=== PATIENT | female | born 1950 ===

== ENCOUNTER 2017-02-20 17:12 | Emergency (ER) | payer MEDICARE, OTHER ==
[2017-02-20 17:12] VITALS: BMI 21.9
[2017-02-20 17:20] VITALS: BP 143/76; PULSE 64; RESP 17; TEMP 97.9; O2SAT 96
--- NOTE | 2017-02-20 17:31 | ED PDOC ---
Arrival/HPI - General Chief Complaint: Abnormal Skin Integrity Time Seen by Provider: 02/20/17 17:28 Historian: Patient - History of Present Illness Narrative History of Present Illness (Text): The patient is a 66yo female, presents to the emergency department for evaluation of a draining abscess on her right nostril, present for the past two weeks. Patient states she applied vicks to the area, with further irritation of her abscess. She states the abscess started draining yesterday, causing her concern and prompting the visit. She denies any other medical complaints. Time/Duration: > week (2) Symptom Onset: Gradual Past Medical History - Provider Review Nursing Documentation Reviewed: Yes - Travel History Have you recently traveled outside [place] w/in the past 3 mons?: No - Past History Past History: No Previous - Infectious Disease Hx of Infectious Diseases: None - Tetanus Immunization Tetanus Immunization: Unknown - Cardiac Hx Cardiac Disorders: Yes Hx Hypertension: Yes Other/Comment: heart Palpitations comes and goes - Pulmonary Hx Respiratory Disorders: No - Neurological Hx Neurological Disorder: No - HEENT Hx HEENT Disorder: Yes Hx Cataracts: Yes (bilateral) Other/Comment: bleeding behind both eyes, cataracts bilateral - Renal Hx Renal Disorder: No - Endocrine/Metabolic Hx Endocrine Disorders: Yes Hx Diabetes Mellitus Type 2: Yes - Hematological/Oncological Hx Blood Disorders: No - Integumentary Hx Eczema: No - Musculoskeletal/Rheumatological Hx Musculoskeletal Disorders: Yes Hx Arthritis: Yes Hx Osteoporosis: Yes - Gastrointestinal Hx Fatty Liver Disease: No - Psychiatric Hx Schizophrenia: No Hx Substance Use: No - Past Surgical History Past Surgical History: No Previous - Surgical History Hx Cataract Extraction: Yes (RIGHT EYE) Hx Tubal Ligation: Yes (1979) - Anesthesia Hx Anesthesia: Yes Hx Anesthesia Reactions: No - Suicidal Assessment Feels Threatened In Home Enviroment: No Family/Social History - Physician Review Nursing Documentation Reviewed: Yes Family/Social History: No Known Family HX Smoking Status: Former Smoker Hx Alcohol Use: No Hx Substance Use: No Hx Substance Use Treatment: No Allergies/Home Meds Allergies/Adverse Reactions: Allergies iodine Allergy (Verified 02/20/17 17:14) RASH Home Medications: Home Meds Medication Instructions Recorded Confirmed Ergocalciferol (Vitamin D2) 50,000 iu PO DAILY 04/19/14 02/20/17 [Vitamin D] GlipiZIDE [Glipizide] 10 mg PO DAILY 04/19/14 02/20/17 MetFORMIN [glucoPHAGE] 1,000 mg PO BID 04/19/14 02/20/17 Simvastatin 80 mg PO DAILY 04/19/14 02/20/17 Insulin Human Regular [Novolin R] 22 units SC HS 02/20/17 02/20/17 Review of Systems - Physician Review All systems were reviewed & negative as marked: Yes Physical Exam - Physical Exam Narrative Physical Exam (Text): - Review of Systems Constitutional: Normal. absent: Fatigue, Weight Change, Fevers Eyes: Normal ENT: draining abscess on right nostril Physical exam Patient appears age appropriate in no distress, speaking full sentences without difficulty - Systems Exam Head: Present: Atraumatic, Normocephalic Conjunctiva: Present: Normal Nose: Small, 1 cm draining abscess noted to right nare. Mild erythema. No signs of cellulitis noted. Mouth: Present: Moist Mucous Membranes Neurological: No focal neurological deficits. Skin: Present: Warm, Dry, Normal Color. No: Rashes Psychiatric: Present: Alert, Oriented x 3, Normal Insight, Normal Concentration Vital Signs Reviewed: Yes Vital Signs Temp Pulse Resp BP Pulse Ox 02/20/17 17:19 97.9 F 64 17 143/76 96 Temperature: Afebrile Blood Pressure: Normal Pulse: Regular Respiratory Rate: Normal Appearance: Positive for: Well-Appearing Pain Distress: None Mental Status: Positive for: Alert and Oriented X 3 Medical Decision Making ED Course and Treatment: Impression: 66y/o female presents with abscess on right nare. Pt non-toxic in no distress. Plan: -- I&D versus management of abscess using antibiotics and warm compresses discussed with patient. Patient agrees with plan to apply warm compresses to nose and take antibiotics. Patient also informed to follow up with an ENT specialist. Pt states she understands to return to the ER right away for new or worsening symptoms or for inability to f/u with PMD or specialist as instructed. Patient states that she fully agrees with and understands discharge instructions. States that she agrees with the plan and disposition. Verbalized and repeated discharge instructions and plan. I have given the patient opportunity to ask any additional questions. - Scribe Statement The provider has reviewed the documentation as recorded by the Jonelle Soriano Provider Scribe Attestation: All medical record entries made by the Scribe were at my direction and personally dictated by me. I have reviewed the chart and agree that the record accurately reflects my personal performance of the history, physical exam, medical decision making, and the department course for this patient. I have also personally directed, reviewed, and agree with the discharge instructions and disposition. Disposition/Present on Arrival - Present on Arrival Any Indicators Present on Arrival: No History of DVT/PE: No History of Uncontrolled Diabetes: Yes Urinary Catheter: No History of Decub. Ulcer: No History Surgical Site Infection Following: None - Disposition Have Diagnosis and Disposition been Completed?: Yes Diagnosis: Nasal abscess Disposition: HOME/ ROUTINE Disposition Time: 17:28 Patient Plan: Discharge Condition: GOOD Discharge Instructions (ExitCare): Abscess (ED) Additional Instructions: PLEASE RETURN TO THE EMERGENCY DEPARTMENT FOR NEW OR WORSENING SYMPTOMS. RETURN RIGHT AWAY IF YOU CANNOT FOLLOW UP WITH YOUR PRIMARY CARE DOCTOR, CLINIC, OR SPECIALIST IN 1-2 DAYS. Prescriptions: Cephalexin [Keflex] 500 mg PO TID #21 capsule Referrals: Remy Aguilar DO [Staff Provider] - Follow up with primary Forms: [employer] (Y[place]i)
== END 2017-02-20 17:51 | disposition home or self-care (01) ==
LOC: ED 17:12
DX: J34.0 Abscess, furuncle and carbuncle of nose (principal); Z87.891 Personal history of nicotine dependence

== ENCOUNTER 2018-07-15 13:35 | Inpatient (IN) | payer OTHER ==
[2018-07-15 13:56] VITALS: BMI 23.2
[2018-07-15 14:25] LABS: VENOUS BLOOD GAS BASE EXCESS 2.5 mmol/L (0.0-2.0); VENOUS BLOOD GAS PO2 40 mm/Hg (30-55)
[2018-07-15 14:35] LABS: BASO # 0.01 K/mm3 (0.0-2.0); BASO % 0.1 % (0.0-3.0); EOS % 0.1 % (1.5-5.0); HEMOGLOBIN 11.7 g/dL (12.0-16.0); LYMPH # 0.5 (1.2-3.4); LYMPH % 3.8 % (22.0-35.0); MEAN CELL VOLUME 91.8 fl (80.0-105.0); MEAN CORPUSCULAR HEMOGLOBIN 30.2 pg (25.0-35.0); MEAN CORPUSCULAR HGB CONC 32.9 g/dl (31.0-37.0); MEAN PLATELET VOLUME 9.9 fl (7.0-11.0); MONO # 0.7 (0.1-0.6); PLATELET COUNT 254 10^3/uL (120.0-450.0); RBC 3.88 10^6/uL (3.5-6.1); RED CELL DISTRIBUTION WIDTH 12.7 % (11.5-14.5); WHITE BLOOD COUNT 12.2 10^3/uL (4.5-11.0)
[2018-07-15 14:51] LABS: INR 1.18; PARTIAL THROMBOPLASTIN TIME 29.6 Seconds (26.9-38.3); PROTHROMBIN TIME 13.1 SECONDS (9.4-12.5)
[2018-07-15 14:52] LABS: ALB/GLOB RATIO 1.2 (1.1-1.8); ALBUMIN 3.9 g/dL (3.0-4.8); ALT/SGPT 16 U/L (7-56); AST/SGOT 23 U/L (14-36); BLOOD UREA NITROGEN 24 mg/dL (7-21); CALCIUM 9.3 mg/dL (8.4-10.5); GFR NON-AFRICAN AMERICAN > 60
[2018-07-15] MEDS ORDERED: Sodium Chloride 0.9% 1,000 ML IV STA (14:57)
[2018-07-15 15:09] LABS: HYPOCHROMIA SLIGHT; LYMPHOCYTE 5 % (22.0-35.0); MONOCYTE 4 % (1.0-6.0); NEUTROPHIL 91 % (50.0-70.0); PLATELET ESTIMATE NORMAL (NORMAL)
[2018-07-15 15:10] LABS: ANISOCYTOSIS SLIGHT
--- NOTE | 2018-07-15 15:21 | ED PDOC ---
Arrival/HPI - General Chief Complaint: Back Pain Time Seen by Provider: 07/15/18 14:25 Historian: Patient, Family (daughter and granddaughter) - History of Present Illness Narrative History of Present Illness (Text): 07/15/18 15:54 A 68 year old female, whose past medical history includes diabetes, presents to the emergency department complaining of right lower back pain for the past 2 days. History given and translated by daughter and granddaughter. Patient went see her diabetes doctor at [facility] and was given refill on diabetes medication. Patient states the doctor did not give her anything for her back pain. Pain began to radiate down patient's right leg as well. Patient reports also experiencing intermittent chest pain, fever, palpitations, chills, nausea. Patient denies any cough, sob, bowel or bladder incontinence, vomiting, diarrhea, dysuria, hematuria, abdominal pain, or any other complaints at this time. Past Medical History - Provider Review Nursing Documentation Reviewed: Yes - Past History Past History: No Previous - Infectious Disease Hx of Infectious Diseases: None - Tetanus Immunization Tetanus Immunization: Unknown - Cardiac Hx Cardiac Disorders: Yes Hx Hypertension: Yes Other/Comment: heart Palpitations comes and goes - Pulmonary Hx Respiratory Disorders: No - Neurological Hx Neurological Disorder: No - HEENT Hx HEENT Disorder: Yes Hx Cataracts: Yes (bilateral) Other/Comment: bleeding behind both eyes, cataracts bilateral - Renal Hx Renal Disorder: No - Endocrine/Metabolic Hx Endocrine Disorders: Yes Hx Diabetes Mellitus Type 2: Yes - Hematological/Oncological Hx Blood Disorders: No - Integumentary Hx Eczema: No - Musculoskeletal/Rheumatological Hx Musculoskeletal Disorders: Yes Hx Arthritis: Yes Hx Osteoporosis: Yes - Gastrointestinal Hx Fatty Liver Disease: No - Psychiatric Hx Schizophrenia: No Hx Substance Use: No - Past Surgical History Past Surgical History: No Previous - Surgical History Hx Cataract Extraction: Yes (RIGHT EYE) Hx Tubal Ligation: Yes (1979) - Anesthesia Hx Anesthesia: Yes Hx Anesthesia Reactions: No Hx Malignant Hyperthermia: No - Suicidal Assessment Feels Threatened In Home Enviroment: No Family/Social History - Physician Review Nursing Documentation Reviewed: Yes Family/Social History: No Known Family HX Smoking Status: Former Smoker Hx Alcohol Use: No Hx Substance Use: No Hx Substance Use Treatment: No Allergies/Home Meds Allergies/Adverse Reactions: Allergies iodine Allergy (Verified 07/15/18 20:23) RASH Home Medications: Home Meds Medication Instructions Recorded Confirmed Ergocalciferol (Vitamin D2) 50,000 iu PO DAILY 04/19/14 07/15/18 [Vitamin D] GlipiZIDE [Glipizide] 10 mg PO DAILY 04/19/14 07/15/18 RX: MetFORMIN [glucoPHAGE] 1,000 mg PO BID 04/19/14 07/15/18 RX: Insulin Human Regular [Novolin 22 units SC HS 02/20/17 07/15/18 R] Simvastatin [Zocor] 80 mg PO DAILY 07/15/18 07/15/18 Review of Systems - Physician Review All systems were reviewed & negative as marked: Yes - Review of Systems Constitutional: Fevers, Night Sweats Cardiovascular: Chest Pain, Palpitations Gastrointestinal: Nausea. absent: Abdominal Pain, Vomiting Genitourinary Female: absent: Dysuria, Hematuria Physical Exam Vital Signs Reviewed: Yes Vital Signs Temp Pulse Resp BP Pulse Ox 07/15/18 13:48 102.5 F H 93 H 16 120/63 98 Temperature: Febrile Blood Pressure: Normal Pulse: Regular Respiratory Rate: Normal Appearance: Positive for: Well-Appearing, Non-Toxic, Comfortable Pain Distress: None Mental Status: Positive for: Alert and Oriented X 3 Finger Stick Blood Glucose: 286 - Systems Exam Head: Present: Atraumatic, Normocephalic Pupils: Present: PERRL Extroacular Muscles: Present: EOMI Conjunctiva: Present: Normal Mouth: Present: Moist Mucous Membranes Neck: Present: Normal Range of Motion Respiratory/Chest: Present: Clear to Auscultation, Good Air Exchange. No: Respiratory Distress, Accessory Muscle Use Cardiovascular: Present: Regular Rate and Rhythm, Normal S1, S2. No: Murmurs Abdomen: Present: Tenderness (suprapubic region). No: Distention, Normal Bowel Sounds (increased bowel sounds), Peritoneal Signs, Rebound Back: Present: Other (right lower muscular tenderness). No: CVA Tenderness Upper Extremity: Present: Normal Inspection. No: Cyanosis, Edema Lower Extremity: Present: Normal Inspection. No: Edema Neurological: Present: GCS=15, CN II-XII Intact, Speech Normal, Motor Func Grossly Intact, Normal Sensory Function Skin: Present: Warm, Dry, Normal Color. No: Rashes Psychiatric: Present: Alert, Oriented x 3, Normal Insight, Normal Concentration Medical Decision Making ED Course and Treatment: 07/15/18 15:57 Impression: 68 year old female with lower back pain. Plan: -- EKG -- Abd/Pelvis CT -- Tylenol -- IV Fluids -- Urinalysis -- Blood Culture -- Urine Culture -- Reassess and disposition Progress Notes: EKG: Ordered, reviewed, and independently interpreted the EKG. Rate : 94 BPM Rhythm : NSR Interpretation : Prolonged interior lead, normal QT, T-wave inversions laterally, v3-v6, AVL inverted. Comparison : EKG taken on 04/19/2014, T-wave inversions are new. 07/15/2018 17:46 Abd/Pelvis CT IMPRESSION: The appendix is slightly dilated measuring up to 10.6 mm with minimal wall thickening however does appear to be partially filled with air. No obvious inflammatory changes are identified in the adjacent mesentery. These findings may represent an normal variant in this patient however the possiblity of early acute appedicifits must be considered. Correlation with history physical exam and laboratory values recommended. 4 mm nonobstructing calcification upper pole left kidney. Urinary bladder wall thickening in part due ti incomplete distention however correlation with Urinalysis to exclude cystitis. Mild rectal wall thickening. Consider follow-up of colonoscopy. Extensive uterine calcifications consistent with calcified uterine fibroids. Dictator: Ramses Fournier MD 07/15/18 18:00 Patient c/o chest pain. Aspirin and SL NTG given. Troponin neg. Patient and daughter updated re results of w/u and plan to admit for further evaluation and management. 07/15/18 18:15 Patient is chest pain free. 07/15/18 18:30 Patient seen by surgical technology instructor, who requests abx and states he will notify Dr. Dexter. 07/15/18 18:40 Case d/w Dr. Ca who accepts pt to her service. - Lab Interpretations Lab Results: pO2 40 mm/Hg (30-55) 07/15/18 14:10 VBG pH 7.40 (7.32-7.43) 07/15/18 14:10 VBG pCO2 45.0 (40-60) 07/15/18 14:10 VBG HCO3 27.9 mmol/l (21-28) 07/15/18 14:10 VBG Total CO2 29.3 mmol.L (22-28) H 07/15/18 14:10 VBG O2 Sat (Calc) 79.7 % (40-65) H 07/15/18 14:10 VBG Base Excess 2.5 mmol/L (0.0-2.0) H 07/15/18 14:10 VBG Potassium 4.9 mmol/L (3.6-5.2) 07/15/18 14:10 Sodium 137.0 mmol/L (132-148) 07/15/18 14:10 Chloride 106.0 mmol/L (98-107) 07/15/18 14:10 Glucose 305 mg/dl (65-105) H 07/15/18 14:10 Lactate 1.6 mmol/L (0.7-2.1) 07/15/18 14:10 FiO2 21.0 % 07/15/18 14:10 PT 13.1 SECONDS (9.4-12.5) H 07/15/18 14:29 INR 1.18 07/15/18 14:29 APTT 29.6 Seconds (26.9-38.3) 07/15/18 14:29 Total Bilirubin 0.6 mg/dL (0.2-1.3) 07/15/18 14:29 AST 23 U/L (14-36) 07/15/18 14:29 ALT 16 U/L (7-56) 07/15/18 14:29 Alkaline Phosphatase 85 U/L (38-126) 07/15/18 14:29 Total Protein 7.1 g/dL (5.8-8.3) 07/15/18 14:29 Albumin 3.9 g/dL (3.0-4.8) 07/15/18 14:29 Globulin 3.2 gm/dL 07/15/18 14:29 Albumin/Globulin Ratio 1.2 (1.1-1.8) 07/15/18 14:29 - RAD Interpretation Radiology Orders: 07/15/18 14:59 ABD & PELVIS W/O PO OR IV CONT [CT] Stat - Medication Orders Current Medication Orders: Sodium Chloride (Sodium Chloride 0.9%) 1,000 mls @ 999 mls/hr IV .Q1H1M STA Stop: 07/15/18 15:57 Last Admin: 07/15/18 15:06 Dose: 999 mls/hr eMAR Start Stop Document 07/15/18 15:06 SRE (Rec: 07/15/18 15:07 SRE [id number]) Intravenous Solution Start Date 07/15/18 Start Time 15:00 End Date 07/15/18 End time 16:00 Total Infusion Time 60 Discontinued Medications Acetaminophen (Tylenol 325mg Tab) 975 mg PO STAT STA Stop: 07/15/18 14:58 Last Admin: 07/15/18 15:08 Dose: 975 mg MAR Pain/Vitals Document 07/15/18 15:08 SRE (Rec: 07/15/18 15:08 SRE [id number]) Pain Reassessment Is This A Pain ReAssessment? Yes - Scribe Statement The provider has reviewed the documentation as recorded by the Jonelle Serrato Provider Scribe Attestation: All medical record entries made by the Scribe were at my direction and personally dictated by me. I have reviewed the chart and agree that the record accurately reflects my personal performance of the history, physical exam, medical decision making, and the department course for this patient. I have also personally directed, reviewed, and agree with the discharge instructions and disposition. Disposition/Present on Arrival - Present on Arrival Any Indicators Present on Arrival: Yes History of DVT/PE: No History of Uncontrolled Diabetes: Yes Urinary Catheter: No History of Decub. Ulcer: No History Surgical Site Infection Following: None - Disposition Have Diagnosis and Disposition been Completed?: Yes Diagnosis: Chest pain, Abnormal EKG, Appendicitis, Back pain, Hyperglycemia Disposition: HOSPITALIZED Disposition Time: 16:40 Patient Plan: Admission Condition: STABLE
[2018-07-15 16:45] LABS: URINE BILIRUBIN NEGATIVE (NEGATIVE); URINE BLOOD NEGATIVE (NEGATIVE); URINE GLUCOSE (UA) 500 mg/dL (NEGATIVE); URINE LEUKOCYTE ESTERASE NEGATIVE Leu/uL (NEGATIVE); URINE PROTEIN 30 mg/dL (<30 mg/dL); URINE UROBILINOGEN 0.2 E.U./dL (<1 E.U./dL)
[2018-07-15 16:46] LABS: URINE APPEARANCE CLEAR (CLEAR); URINE COLOR YELLOW (YELLOW)
[2018-07-15 16:50] LABS: URINE EPITHELIAL CELLS 0 - 2 /hpf (0-5); URINE RBC 0 - 2 /hpf (0-2); URINE WBC 0 - 2 /hpf (0-6)
--- NOTE | 2018-07-15 17:50 | CT ---
Date of service: 07/15/2018 PROCEDURE: CT Abdomen and Pelvis . HISTORY: Right flank pain COMPARISON: None. TECHNIQUE: Contiguous axial images of the abdomen and pelvis performed without oral or intravenous contrast material. Additional 2D sagittal and coronal reformats generated. Radiation dose: Total exam DLP = 239.13 mGy-cm. This CT exam was performed using one or more of the following dose reduction techniques: Automated exposure control, adjustment of the mA and/or kV according to patient size, and/or use of iterative reconstruction technique. FINDINGS: LOWER THORAX: Mild passive/dependent type atelectasis seen both posterior lower lung grajeda.. No evidence of effusion or basilar pneumothorax. Heart size is within range of normal. No significant pericardial effusion. There is a small hiatal hernia. LIVER: Unremarkable. No gross lesion or ductal dilatation seen on this noncontrast exam. GALLBLADDER AND BILE DUCTS: Gallbladder physiologically distended. No evidence of intraluminal gallbladder calculi. PANCREAS: Unremarkable. No mass. No ductal dilatation. SPLEEN: Probable small splenule adjacent to the inferomedial border of the main body of the spleen. ADRENALS: Slightly enlarged nodular appearing left adrenal gland. KIDNEYS AND URETERS: Unremarkable. No stone or hydronephrosis. Kidneys demonstrate relatively symmetric size. There is a small calcification in the medial cortex upper pole left kidney measuring approximately 4 mm. No evidence of hydronephrosis. BLADDER: The urinary bladder is incompletely distended which in part accounts for thick-walled appearance however correlation with urinalysis recommended to exclude cystitis. REPRODUCTIVE: Multiple uterine calcifications consistent calcified uterine fibroids. APPENDIX: The appendix is slightly dilated measuring up to 10.6 mm with minimal wall thickening however does appear to be partially filled with air. No obvious inflammatory changes are identified in the adjacent mesentery. These findings may represent an normal variant in this patient however the possibility of early acute appendicitis must be considered. Correlation with history physical exam and laboratory values recommended. BOWEL: Evaluation of the bowel is somewhat limited due to the lack of oral contrast material. Stomach is incompletely distended with wall thickening. Wall thickening is somewhat more pronounced than one would expect therefore possibility of a gastritis or other intrinsic/invasive wall lesion should be excluded. Clinical correlation recommended. The visualized loops of small bowel exhibit relatively normal contour and caliber. No evidence of mechanical small bowel obstruction. Stool and air seen throughout the large bowel.. Questionable mural wall thickening of the rectum. Follow-up of colonoscopy may be prudent. PERITONEUM: Unremarkable. No fluid collection. No free air. Small fat containing umbilical hernia. LYMPH NODES: Unremarkable. No enlarged lymph nodes. VASCULATURE: Unremarkable. No aortic aneurysm. Minor aortic atherosclerotic calcification or mural plaque present. BONES: Mild multilevel degenerative spondylosis of the thoracic and lumbar spine most mid significantly affecting L3-L4 disc space level. OTHER FINDINGS: None. IMPRESSION: The appendix is slightly dilated measuring up to 10.6 mm with minimal wall thickening however does appear to be partially filled with air. No obvious inflammatory changes are identified in the adjacent mesentery. These findings may represent an normal variant in this patient however the possibility of early acute appendicitis must be considered. Correlation with history physical exam and laboratory values recommended. 4 mm nonobstructing calcification upper pole left kidney. Urinary bladder wall thickening in part due to incomplete distention however correlation with urinalysis to exclude cystitis. Mild rectal wall thickening. Consider follow-up of colonoscopy. Extensive uterine calcifications consistent with calcified uterine fibroids. See above discussion for additional details and findings.
[2018-07-15 18:21] LABS: TROPONIN I < 0.01 ng/mL
[2018-07-15] MEDS ORDERED: Piperacillin/Tazobact 3.375 gm 100 ML IVPB STA (18:37)
--- NOTE | 2018-07-15 18:50 | CP.PCM.CON ---
History of Present Illness - History of Present Illness History of Present Illness: Surgery Consult note. Dr. Dexter 68yo F with PMHx of DM, HLD, Hypothyroid here for evaluation of right flank pain. Patient states that the pain started 3 days ago and has been getting gradually worse, intermittent in nature, radiates down right lower leg. She started having some nausea and decreased appetite and came into the ED for further evaluation. Denies any vomiting. Does report some constipation over the past few days. Last BM was yesterday, non-bloody, non-melanotic. She also reports some chills at home and subjective fevers. Tmax of 102F in the ED. She denies any urinary complaints. Also reports some palpitaions that have been off and on over the past 3 months. Denies any chest pain, no SOB. Denies any sick contacts. CT Abd/Pelvis in the ED with possible early appendicitis. PMHx: DM, HLD, Hypothyroid PSHx: Tubal Ligation Family Hx: non-contributory Social Hx: Denies tobacco use; Denies ETOH; Denies illicit drugs Allergy: Iodine Review of Systems - Review of Systems All systems: reviewed and no additional remarkable complaints except - Constitutional Constitutional: Anorexia, Chills, Fever - Cardiovascular Cardiovascular: Palpitations. absent: Chest Pain, Dyspnea - Respiratory Respiratory: absent: Cough, Dyspnea - Gastrointestinal Gastrointestinal: Abdominal Pain, Constipation, Nausea. absent: Diarrhea, Melena, Vomiting - Genitourinary Genitourinary: absent: Dysuria Past Patient History - Infectious Disease Hx of Infectious Diseases: None - Tetanus Immunizations Tetanus Immunization: Unknown - Past Medical History & Family History Past Medical History?: Yes - Past Social History Smoking Status: Former Smoker Alcohol: None Drugs: Denies - CARDIAC Hx Cardiac Disorders: Yes Hx Hypertension: Yes Other/Comment: heart Palpitations comes and goes - PULMONARY Hx Respiratory Disorders: No - NEUROLOGICAL Hx Neurological Disorder: No - HEENT Hx HEENT Problems: Yes Hx Cataracts: Yes (bilateral) Other/Comment: bleeding behind both eyes, cataracts bilateral - RENAL Hx Chronic Kidney Disease: No - ENDOCRINE/METABOLIC Hx Endocrine Disorders: Yes Hx Diabetes Mellitus Type 2: Yes - HEMATOLOGICAL/ONCOLOGICAL Hx Blood Disorders: No - INTEGUMENTARY Hx Eczema: No - MUSCULOSKELETAL/RHEUMATOLOGICAL Hx Musculoskeletal Disorders: Yes Hx Arthritis: Yes Hx Osteoporosis: Yes - GASTROINTESTINAL Hx Fatty Liver Disease: No - PSYCHIATRIC Hx Schizophrenia: No Hx Substance Use: No - SURGICAL HISTORY Hx Cataract Extraction: Yes (RIGHT EYE) Hx Tubal Ligation: Yes (1979) - ANESTHESIA Hx Anesthesia: Yes Hx Anesthesia Reactions: No Hx Malignant Hyperthermia: No Meds Allergies/Adverse Reactions: Allergies Allergy/AdvReac Type Severity Reaction Status Date / Time iodine Allergy RASH Verified 07/15/18 20:23 - Medications Medications: Current Medications Piperacillin Sod/Tazobactam Sod (Zosyn 3.375 In Ns 100ml) 100 mls @ 200 mls/hr IVPB STAT STA; Protocol Stop: 07/15/18 19:06 Nitroglycerin (Nitrostat Sl Tab) 0.4 mg SL Q5MIN PRN PRN Reason: Pain, Mild (1-3) Last Admin: 07/15/18 18:00 Dose: 0.4 mg Physical Exam - Constitutional Appears: No Acute Distress - Head Exam Head Exam: ATRAUMATIC, NORMAL INSPECTION, NORMOCEPHALIC - Eye Exam Eye Exam: EOMI. absent: Scleral icterus - ENT Exam ENT Exam: Mucous Membranes Moist - Respiratory Exam Respiratory Exam: NORMAL BREATHING PATTERN. absent: Accessory Muscle Use, Respiratory Distress - Cardiovascular Exam Cardiovascular Exam: RRR. absent: JVD - GI/Abdominal Exam GI & Abdominal Exam: Soft. absent: Distended, Firm, Guarding, Rebound Additional comments: Right Lower quadrant tenderness to deep palpation. No Rovsing's sign. No Obturator sign. No Psoas Sign. - Extremities Exam Extremities exam: Positive for: normal inspection. Negative for: calf tenderness - Back Exam Back exam: NORMAL INSPECTION - Neurological Exam Neurological exam: Alert, Oriented x3 - Psychiatric Exam Psychiatric exam: Normal Affect, Normal Mood - Skin Skin Exam: Dry, Intact, Normal Color, Warm Results - Vital Signs Recent Vital Signs: Last Vital Signs Temp 98.9 F 07/15/18 17:37 Pulse 83 07/15/18 18:09 Resp 20 07/15/18 18:09 BP 190/97 H 07/15/18 18:09 Pulse Ox 95 07/15/18 18:09 - Labs Result Diagrams: 07/15/18 14:29 07/15/18 14:29 Labs: Laboratory Results - last 24 hr 07/15/18 07/15/18 07/15/18 13:47 14:10 14:10 WBC RBC Hgb Hct MCV MCH MCHC RDW Plt Count MPV Neut % (Auto) Lymph % (Auto) Knox % (Auto) Eos % (Auto) Baso % (Auto) Lymph # (Auto) Knox # (Auto) Eos # (Auto) Baso # (Auto) Absolute Neuts (auto) Neutrophils % (Manual) Lymphocytes % (Manual) Monocytes % (Manual) Platelet Evaluation Hypochromasia Anisocytosis (manual) PT INR APTT pO2 40 VBG pH 7.40 VBG pCO2 45.0 VBG HCO3 27.9 VBG Total CO2 29.3 H VBG O2 Sat (Calc) 79.7 H VBG Base Excess 2.5 H VBG Potassium 4.9 Sodium 137.0 Chloride 106.0 Glucose 305 H Lactate 1.6 FiO2 21.0 Potassium Carbon Dioxide Anion Gap BUN Creatinine Est GFR ( Amer) Est GFR (Non-Af Amer) POC Glucose (mg/dL) 286 H Random Glucose Calcium Total Bilirubin AST ALT Alkaline Phosphatase Ammonia < 9 L Troponin I Total Protein Albumin Globulin Albumin/Globulin Ratio Venous Blood Potassium 4.9 Urine Color Urine Appearance Urine pH Ur Specific [place] Urine Protein Urine Glucose (UA) Urine Ketones Urine Blood Urine Nitrate Urine Bilirubin Urine Urobilinogen Ur Leukocyte Esterase Urine RBC Urine WBC Ur Epithelial Cells 07/15/18 07/15/18 07/15/18 14:29 14:29 14:29 WBC 12.2 H RBC 3.88 Hgb 11.7 L Hct 35.6 L MCV 91.8 MCH 30.2 MCHC 32.9 RDW 12.7 Plt Count 254 MPV 9.9 Neut % (Auto) 90.0 H Lymph % (Auto) 3.8 L Knox % (Auto) 6.0 Eos % (Auto) 0.1 L Baso % (Auto) 0.1 Lymph # (Auto) 0.5 L Knox # (Auto) 0.7 H Eos # (Auto) 0.0 Baso # (Auto) 0.01 Absolute Neuts (auto) 11.03 H Neutrophils % (Manual) 91 H Lymphocytes % (Manual) 5 L Monocytes % (Manual) 4 Platelet Evaluation Normal Hypochromasia Slight Anisocytosis (manual) Slight PT 13.1 H INR 1.18 APTT 29.6 pO2 VBG pH VBG pCO2 VBG HCO3 VBG Total CO2 VBG O2 Sat (Calc) VBG Base Excess VBG Potassium Sodium 137 Chloride 104 Glucose Lactate FiO2 Potassium 5.0 Carbon Dioxide 26 Anion Gap 12 BUN 24 H Creatinine 0.9 Est GFR ( Amer) > 60 Est GFR (Non-Af Amer) > 60 POC Glucose (mg/dL) Random Glucose 284 H Calcium 9.3 Total Bilirubin 0.6 AST 23 ALT 16 Alkaline Phosphatase 85 Ammonia Troponin I < 0.01 Total Protein 7.1 Albumin 3.9 Globulin 3.2 Albumin/Globulin Ratio 1.2 Venous Blood Potassium Urine Color Urine Appearance Urine pH Ur Specific [place] Urine Protein Urine Glucose (UA) Urine Ketones Urine Blood Urine Nitrate Urine Bilirubin Urine Urobilinogen Ur Leukocyte Esterase Urine RBC Urine WBC Ur Epithelial Cells 07/15/18 16:35 WBC RBC Hgb Hct MCV MCH MCHC RDW Plt Count MPV Neut % (Auto) Lymph % (Auto) Knox % (Auto) Eos % (Auto) Baso % (Auto) Lymph # (Auto) Knox # (Auto) Eos # (Auto) Baso # (Auto) Absolute Neuts (auto) Neutrophils % (Manual) Lymphocytes % (Manual) Monocytes % (Manual) Platelet Evaluation Hypochromasia Anisocytosis (manual) PT INR APTT pO2 VBG pH VBG pCO2 VBG HCO3 VBG Total CO2 VBG O2 Sat (Calc) VBG Base Excess VBG Potassium Sodium Chloride Glucose Lactate FiO2 Potassium Carbon Dioxide Anion Gap BUN Creatinine Est GFR ( Amer) Est GFR (Non-Af Amer) POC Glucose (mg/dL) Random Glucose Calcium Total Bilirubin AST ALT Alkaline Phosphatase Ammonia Troponin I Total Protein Albumin Globulin Albumin/Globulin Ratio Venous Blood Potassium Urine Color Yellow Urine Appearance Clear Urine pH 8.0 Ur Specific [place] 1.020 Urine Protein 30 H Urine Glucose (UA) 500 H Urine Ketones 15 H Urine Blood Negative Urine Nitrate Negative Urine Bilirubin Negative Urine Urobilinogen 0.2 Ur Leukocyte Esterase Negative Urine RBC 0 - 2 Urine WBC 0 - 2 Ur Epithelial Cells 0 - 2 Assessment & Plan - Assessment and Plan (Free Text) Assessment: 68yo F w poorly-controlled DM, HLD, Hypothyroid here with possible early appendicitis - CT Abd/pelvis noted - Leukocytosis - Febrile Plan: - NPO - IV Abx - pain management - antiemetics prn - medical management as per PMD - f/u Cardiology recs - We will monitor patient's clinical status and make further surgical recs as warranted. Further recs as per Dr. Isacc Hawkins PGY2 surgery
[2018-07-15] MEDS ORDERED: HYDROmorphone 1 mg/ml ISec IVP PRN (18:54)
[2018-07-15] MEDS ORDERED: metroNIDAZOLE IV 500 mg/100 ml 500 MG/100 ML BAG IVPB STA (18:58)
[2018-07-15] MEDS ORDERED: cefTRIAXone 1 GM/100 ML BAG IVPB STA (19:02)
[2018-07-15] MEDS: Metoprolol Succinate 25 mg XL Tab PO SCH (19:30)
[2018-07-15] MEDS: Sodium Chloride 0.45% 1,000 ML IV SCH (19:31)
[2018-07-15] MEDS: Heparin25000 units/250ml 1/2NS 25,000 UNITS/250 ML BAG IV SCH (20:59)
[2018-07-15] MEDS: Insulin Reg-HIGH-Coverage SC SCH (21:46)
[2018-07-15] MEDS: metroNIDAZOLE IV 500 mg/100 ml 500 MG/100 ML BAG IVPB SCH (21:47)
--- NOTE | 2018-07-15 21:54 | HP ---
DATE OF EXAM: 07/15/2018 HISTORY OF PRESENT ILLNESS: The patient is 68 years old, came to emergency room because of generalized aches and pain, not feeling well, chest discomfort, abdominal pain, lower back pain. For above reason, the patient was taken by her family to council member, she was given refills, so her pain got worse and started to radiate from the back to the right lower abdomen and the right leg. Complaining of generalized weakness and feeling feverish along with chills. She had nausea and decreased appetite, started to have abdominal discomfort with bloating. The patient is a poor historian. PAST MEDICAL HISTORY: Significant for xim-qxmjflg-dldoqmysh diabetes. PAST SURGICAL HISTORY: Significant for cataract surgery. ALLERGIES: SHE IS ALLERGIC TO IODINE. MEDICATIONS AT HOME: She is on simvastatin 80 mg daily, metformin 1000 mg twice a day, Novolin R 22 unit at bedtime, glipizide 10 mg daily, vitamin D, and Keflex. SOCIAL HISTORY: She used to be a heavy smoker in the past. Denies alcohol use. PHYSICAL EXAMINATION: GENERAL: The patient is awake and alert, able to communicate. VITAL SIGNS: Temperature 102.5, pulse 93, respirations 16, and blood pressure 120/63. LUNGS: Bilateral fair airflow. No rhonchi or crackle. HEART: S1 and S2 audible. ABDOMEN: Soft. Right lower quadrant discomfort. NEUROLOGIC: She is awake, alert, oriented, able to communicate. LABORATORY DATA: WBC 12.2, hemoglobin 11.7, hematocrit 35.6, and platelet 254. PT 13.1, INR 1.18. Chemistry: Sodium 137, potassium 5.0, chloride 104, CO2 of 23, BUN 24, creatinine 0.9, blood sugar 284, alk phos 85. Ammonia level is less than 10. Troponin 0.01. Urinalysis shows glucose and ketones. She had CT scan of the abdomen and pelvis done that shows appendix likely dilated measuring up to 10.6 mm with minimal wall thickening, however, appeared to be partially filled with air finding consistent with normal variant which is early acute appendicitis. Nonobstructive left upper renal stone. ASSESSMENT: 1. Acute appendicitis. 2. Non-insulin dependent diabetes. 3. History of hypertension. 4. Hyperlipidemia. PLAN: We will keep the patient n.p.o. We will give IV fluid and IV antibiotics. Monitor blood sugar. Surgical consult by Dr. Dexter has been requested and we will follow up CBC and electrolyte in a.m. We will follow up in a.m. Luis Angel Canales MD
[2018-07-15] MEDS ORDERED: Pneumococcal 23-Valent Vaccine IM ONE (22:47)
[2018-07-15] MEDS ORDERED: Influenza Vaccine 60 mcg/0.5 mL SYR (4YR UP) IM ONE (22:47)
[2018-07-16 03:24] LABS: BASO # 0.02 K/mm3 (0.0-2.0); BASO % 0.1 % (0.0-3.0); HEMOGLOBIN 10.5 g/dL (12.0-16.0); LYMPH # 1.8 (1.2-3.4); LYMPH % 11.9 % (22.0-35.0); MEAN CELL VOLUME 90.9 fl (80.0-105.0); MEAN CORPUSCULAR HEMOGLOBIN 29.8 pg (25.0-35.0); MEAN CORPUSCULAR HGB CONC 32.8 g/dl (31.0-37.0); MEAN PLATELET VOLUME 9.7 fl (7.0-11.0); MONO # 1.1 (0.1-0.6); MONO % 7.2 % (1.0-6.0); RBC 3.52 10^6/uL (3.5-6.1); RED CELL DISTRIBUTION WIDTH 13.1 % (11.5-14.5); WHITE BLOOD COUNT 15.2 10^3/uL (4.5-11.0)
[2018-07-16 04:08] LABS: ALB/GLOB RATIO 1.1 (1.1-1.8); ALBUMIN 3.2 g/dL (3.0-4.8); ALT/SGPT 24 U/L (7-56); AST/SGOT 113 U/L (14-36); BLOOD UREA NITROGEN 25 mg/dL (7-21); CALCIUM 8.3 mg/dL (8.4-10.5); GFR NON-AFRICAN AMERICAN > 60
[2018-07-16] MEDS: metroNIDAZOLE IV 500 mg/100 ml 500 MG/100 ML BAG IVPB SCH ×2 (05:00→14:21)
[2018-07-16] MEDS: Sodium Chloride 0.45% 1,000 ML IV SCH ×2 (05:01→09:52)
[2018-07-16 05:02] LABS: FREE T4 1.11 ng/dL (0.78-2.19)
[2018-07-16] MEDS: Insulin Reg-HIGH-Coverage SC SCH ×3 (08:02→18:52)
[2018-07-16] MEDS: Metoprolol Succinate 25 mg XL Tab PO SCH (08:35)
--- NOTE | 2018-07-16 08:48 | CARD ---
APPROVED REPORT Date of service: 07/15/2018 EKG Measurement Heart [id number] <Conclusion> Normal sinus rhythm Low voltage QRS Borderline ECG
--- NOTE | 2018-07-16 08:50 | CP.PCM.PN ---
Subjective - Date & Time of Evaluation Date of Evaluation: 07/16/18 Time of Evaluation: 07:20 - Subjective Subjective: General Surgery Pt seen and examined. No acute events overnight. Complains of chest discomfort and palpitations. Denies any abdominal pain at this time, still reports R hip and R leg pains. Afebrile overnight. No N/V, F/C, or diarrhea overnight. Objective - Vital Signs/Intake and Output Vital Signs (last 24 hours): Temp Pulse Resp BP Pulse Ox 98.9 F 58 L 18 86/48 L 98 07/16/18 06:00 07/16/18 08:35 07/16/18 06:00 07/16/18 08:35 07/16/18 06:00 Intake and Output: 07/16/18 07/16/18 06:59 18:59 Intake Total 1345 Output Total 2 Balance 1343 - Medications Medications: Current Medications Acetaminophen (Tylenol 325mg Tab) 650 mg PO Q6H PRN PRN Reason: Fever >100.4 F Acetaminophen (Tylenol 325mg Tab) 650 mg PO Q6H PRN PRN Reason: Headache Last Admin: 07/15/18 20:54 Dose: 650 mg Hydromorphone HCl (Dilaudid) 1 mg IVP Q4H PRN PRN Reason: Pain, moderate (4-7) Sodium Chloride (Sodium Chloride 0.45%) 1,000 mls @ 100 mls/hr IV .Q10H DEYA Last Admin: 07/16/18 05:01 Dose: Not Given Metronidazole (Flagyl) 500 mg in 100 mls @ 100 mls/hr IVPB Q8 DEYA; Protocol Last Admin: 07/16/18 05:00 Dose: 100 mls/hr Ceftriaxone Sodium (Rocephin 1 Gram Ivpb) 1 gm in 100 mls @ 100 mls/hr IVPB DAILY DEYA; Protocol Heparin Sodium/Sodium Chloride (Heparin 06546 Units/250ml 1/2 Normal Saline) 25,000 units in 250 mls @ 6.477 mls/hr IV .Q24H DEYA; Protocol Last Titration: 07/16/18 04:32 Dose: 10 units/kg/hr, 5.398 mls/hr Insulin Human Regular (Humulin R High) 0 units SC ACHS DEYA; Protocol Last Admin: 02/17/19 08:02 Dose: Not Given Metoprolol Succinate (Toprol Xl) 25 mg PO BRK DEYA Last Admin: 07/16/18 08:35 Dose: Not Given Nitroglycerin (Nitrostat Sl Tab) 0.4 mg SL Q5MIN PRN PRN Reason: Pain, Mild (1-3) Last Admin: 07/15/18 18:00 Dose: 0.4 mg Ondansetron HCl (Zofran Inj) 4 mg IVP Q6H PRN PRN Reason: Nausea/Vomiting Pantoprazole Sodium (Protonix Inj) 40 mg IVP DAILY [facility] - Labs Labs: 07/16/18 03:15 07/16/18 03:15 PT 13.1 SECONDS (9.4-12.5) H 07/15/18 14:29 INR 1.18 07/15/18 14:29 APTT 89.2 Seconds (26.9-38.3) H 07/16/18 03:15 - Constitutional Appears: Non-toxic, No Acute Distress - Head Exam Head Exam: ATRAUMATIC, NORMOCEPHALIC - Eye Exam Eye Exam: EOMI. absent: Scleral icterus - Respiratory Exam Respiratory Exam: NORMAL BREATHING PATTERN. absent: Respiratory Distress - GI/Abdominal Exam GI & Abdominal Exam: Soft. absent: Distended, Firm, Guarding, Rigid, Tenderness, Rebound - Neurological Exam Neurological Exam: Alert, Awake, Oriented x3 - Skin Skin Exam: Dry, Warm Assessment and Plan - Assessment and Plan (Free Text) Assessment: 68F with questionable early appendicitis. Plan: Continue IV abx Serial abd exams Monitor labs If appendicitis becomes more likely as dx, will consider OR intervention, however, pt is high risk due to cardiac issues D/W Dr. Isacc Marie PGY4
--- NOTE | 2018-07-16 08:51 | CARD ---
APPROVED REPORT Date of service: 07/15/2018 EKG Measurement Heart [id number] <Conclusion> Normal sinus rhythm Low voltage QRS ST & T wave abnormality, consider anterolateral ischemia Abnormal ECG
[2018-07-16] MEDS ORDERED: cefTRIAXone 1 gm 1 GM/100 ML BAG IVPB SCH (10:00)
[2018-07-16] MEDS ORDERED: Midazolam 2 MG/2 ML VIAL ONE ×2 (11:06→11:36)
[2018-07-16] MEDS ORDERED: Lidocaine 2% Inj (20ml) ONE (11:06)
[2018-07-16] MEDS ORDERED: Phenylephrine 10 mg/ml Inj ONE (11:06)
[2018-07-16] MEDS ORDERED: Iohexol 350mgl/ml 50 ML ONE (11:07)
[2018-07-16] MEDS ORDERED: Iodixanol 320 MG/ML 200 ML BOTTLE IV ONE (11:07)
[2018-07-16] MEDS ORDERED: Iodixanol 320 MG/ML 100 ML BOTTLE IV ONE (11:07)
[2018-07-16] MEDS ORDERED: Nitroglycerin 50mg in D5W 0 MG/0 ML BOTTLE IV ONE (11:07)
--- NOTE | 2018-07-16 11:07 | PCM.RRT ---
HEAD PACKAGER Nurse Assessment - Situation Date: 07/16/18 Time HEAD PACKAGER was called: 10:44 ([facility]) HEAD PACKAGER Responder Arrival Time: 10:45 HEAD PACKAGER Location:: [address] [place] [address] Room Number: [id number] HEAD PACKAGER Reason for Call: Chest Pain HEAD PACKAGER Called By: Physician - IV IV Inserted during HEAD PACKAGER?: No - Respiratory Oxygen Delivery Method: Nasal Cannula @L/min Oxygen Flow Rate: 2 - Diagnostic Test Ordered EKG: Yes (No sig change as compared to last one. NSR. No specific ST/TWI) Chest X-Ray: Yes (venous congestion improves as compared to last one) - Vital Signs Vital Sign: T 98.7, 123/77, HR 68, 98 on 2L NC, glucose 130 - Recommendations Notifications: Attending Physician, Family or Designated Caregiver I.Reason for HEAD PACKAGER - A) Acute Change in Patient: Subjective: Ms Aquino, 68yo F with PMHx of DM, HLD, Hypothyroid here for evaluation of right flank pain. Patient states that the pain started 3 days ago and has been getting gradually worse, intermittent in nature, radiates down right lower leg associated with nausea and poor appetite. Surgery is on board to r/o appendicitis. Pt c/o chest discomfort and palpitations yesterday. Her trops increases from 0.01 to 3.7, and heparin gtt was started. This AM, trop is 32. [facility] was called by Dr Hicks. Pt is asymptpmatic. Per daughter, she had a loft worker outside by no intervention, no recent echo/stress test ROS - Denies CHANEY, CP, Palpitation, dizziness, SOB, N/V/D/C, dysuria - Neurological Status (Select all that apply): Alert, Responsive, Oriented, Verbal, Follows Commands - Respiratory Oxygen Delivery Method: Nasal Cannula @L/min Oxygen Flow Rate: 2 - Constitutional Appears: No Acute Distress - Head Head Exam: ATRAUMATIC, NORMAL INSPECTION, NORMOCEPHALIC - Eyes Eye Exam: EOMI, Normal appearance, PERRL. absent: Scleral icterus - Respiratory Exam Respiratory Exam: Clear to Ausculation Bilateral, NORMAL BREATHING PATTERN. absent: Rales, Rhonchi, Wheezes - Cardiovascular Exam Cardiovascular Exam: REGULAR RHYTHM, +S1, +S2. absent: Murmur - GI/Abdominal Exam GI & Abdominal Exam: Soft, Normal Bowel Sounds. absent: Guarding, Rigid, Tenderness - Neurological Exam Neurological Exam: Alert, Awake, CN II-XII Intact, Oriented x3 - Extremities Exam Extremities Exam: Full ROM, Normal Inspection Plan - Assessment of Findings&Treatment Plan Ms Aquino, 68yo F with PMHx of DM, HLD, Hypothyroid here for evaluation of right flank pain. Patient states that the pain started 3 days ago and has been getting gradually worse, intermittent in nature, radiates down right lower leg associated with nausea and poor appetite. Surgery is on board to r/o appendici tis. Pt c/o chest discomfort and palpitations yesterday. Her trops increases from 0.01 to 3.7, and heparin gtt was started. This AM, trop is 32. [facility] was called by Dr Hicks for trops elevated 10x from 3 to 32. 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 Dr Kenny had contacted transfer center as well. - continue hep gtt - leave the sheath in - vascular check per protocol - EMTALA form signed, imaging CD in chart - transport with ACLS with hep gtt and sheath per Dr. Dr Kenny
[2018-07-16] MEDS ORDERED: DiphenhydrAMINE 50 mg/ml Inj ONE (11:31)
[2018-07-16] MEDS ORDERED: Famotidine 20mg/50ml 20 MG/50 ML BAG IVPB ONE (11:31)
[2018-07-16] MEDS: Heparin25000 units/250ml 1/2NS 25,000 UNITS/250 ML BAG IV SCH (12:52)
--- NOTE | 2018-07-16 13:36 | PN ---
DATE: 07/16/2018 SUBJECTIVE: I was informed that the serial troponin is 32. I canceled the plans for chest CT angio and I discussed the case with Dr. Kenny and activated _[facility] ASSESSMENT AND PLAN: The case was also discussed with the cardiothoracic surgeon, Dr. Dexter, who doubted the diagnosis of acute appendicitis and he wrote in his assessment questionable early appendicitis. If the appendicitis become more likely, we will consider OR intervention; however, the patient is at high risk due to cardiac issues. By the time of this dictation, the patient is currently in the cardiac catheterization lab being prepared for the procedure. She did receive a loading dose of 300 mg of Plavix and she is still on IV heparin. The case was discussed in extensive detail with the patient's family including the patient's daughter, who agreed for the procedure. Reji Hicks MD [id number]
[2018-07-16 14:04] VITALS: TEMP 97.4
--- NOTE | 2018-07-16 14:05 | CP.PCM.CON ---
<Evert Cancino - Last Filed: 07/16/18 16:53> History of Present Illness - History of Present Illness History of Present Illness: Evert Cancino, PGY-1 ICU Consult note for Dr. Zhou: ICU Consulted for: Code heart Pt is a 68yo F with pmhx of IDDM, hypothyroidism and HLD who presented to the ED for R sided flank pain and c/o chest palpitations. ICU was consulted because this AM, the pt was noted to have an elevation in trops from every subsequent lab draw. Pts previous EKG showed NSR at 94 with T wave inversions laterally V3- 6 AVL inverted. With the elevated trops, cardiology was called and code heart was called. Pt wheeled into the bed laborer, where pt was noted to have triple vessel disease and given pts hx of DM, per cardio the decision was made to transfer pt to [facility] for CABG. Pt is now in the ICU with the heparin drip running and pt states that she is having no chest pain. She is resting comfortably in bed and denies any chest, jaw, neck or back pain. She also denies any lighthe adedness, dizziness, headache, numbness, tingling, weakness, SOB, cough, chest pain, palpitations, back pain, YUN, pleuritic chest pain, abd pain, n/v, c/d, or dysuria. Pt denies any other acute complaints at this time. Pmhx: HLD, IDDM, hypothyroidism Pshx: tubal ligation Meds: metformin, Insulin, atorvastatin, synthroid All: Iodine - rash Soc: smoked [id number] yrs, quit 1.5yrs ago, denies recent EtOH or illicit drug use Fam: [address] PMD: [facility]: [facility] in [place] Review of Systems - Review of Systems Review of Systems: 12 point ROS reviewed and negative except noted in HPI above. Past Patient History - Infectious Disease Hx of Infectious Diseases: None - Tetanus Immunizations Tetanus Immunization: Unknown - Past Medical History & Family History Past Medical History?: Yes - Past Social History Smoking Status: Former Smoker - CARDIAC Hx Cardiac Disorders: Yes Hx Hypertension: Yes Other/Comment: heart Palpitations comes and goes - PULMONARY Hx Respiratory Disorders: Yes (USED TO SMOKE 6 CIGARETTES A DAY.QUIT) - NEUROLOGICAL Hx Neurological Disorder: No - HEENT Hx HEENT Problems: Yes Hx Cataracts: Yes (bilateral) Other/Comment: bleeding behind both eyes, cataracts bilateral - RENAL Hx Chronic Kidney Disease: No - ENDOCRINE/METABOLIC Hx Endocrine Disorders: Yes Hx Diabetes Mellitus Type 2: Yes - HEMATOLOGICAL/ONCOLOGICAL Hx Blood Disorders: No - INTEGUMENTARY Hx Eczema: No - MUSCULOSKELETAL/RHEUMATOLOGICAL Hx Musculoskeletal Disorders: Yes Hx Arthritis: Yes Hx Falls: No Hx Osteoporosis: Yes - GASTROINTESTINAL Hx Fatty Liver Disease: No - GENITOURINARY/GYNECOLOGICAL Hx Genitourinary Disorders: Yes (TUBAL LIGATION) - PSYCHIATRIC Hx Schizophrenia: No Hx Substance Use: No - SURGICAL HISTORY Hx Surgeries: Yes - ANESTHESIA Hx Anesthesia: Yes Hx Anesthesia Reactions: No Hx Malignant Hyperthermia: No Meds Allergies/Adverse Reactions: Allergies Allergy/AdvReac Type Severity Reaction Status Date / Time iodine Allergy RASH Verified 07/15/18 20:23 - Medications Medications: Current Medications Acetaminophen (Tylenol 325mg Tab) 650 mg PO Q6H PRN PRN Reason: Fever >100.4 F Last Admin: 07/16/18 13:42 Dose: 650 mg Acetaminophen (Tylenol 325mg Tab) 650 mg PO Q6H PRN PRN Reason: Headache Last Admin: 07/15/18 20:54 Dose: 650 mg Aspirin (Aspirin Chewable) 81 mg PO DAILY DEYA Last Admin: 07/16/18 10:55 Dose: 81 mg Hydromorphone HCl (Dilaudid) 1 mg IVP Q4H PRN PRN Reason: Pain, moderate (4-7) Sodium Chloride (Sodium Chloride 0.45%) 1,000 mls @ 100 mls/hr IV .Q10H DEYA Last Admin: 07/16/18 09:52 Dose: 100 mls/hr Metronidazole (Flagyl) 500 mg in 100 mls @ 100 mls/hr IVPB Q8 DEYA; Protocol Last Admin: 07/16/18 05:00 Dose: 100 mls/hr Ceftriaxone Sodium (Rocephin 1 Gram Ivpb) 1 gm in 100 mls @ 100 mls/hr IVPB DAILY DEYA; Protocol Last Admin: 07/16/18 09:50 Dose: 100 mls/hr Heparin Sodium/Sodium Chloride (Heparin 07943 Units/250ml 1/2 Normal Saline) 25,000 units in 250 mls @ 6.477 mls/hr IV .Q24H [facility]; Protocol Last Admin: 07/16/18 12:52 Dose: 10 units/kg/hr, 5.398 mls/hr Insulin Human Regular (Humulin R High) 0 units SC ACHS [facility]; Protocol Last Admin: 07/16/18 12:58 Dose: Not Given Metoprolol Succinate (Toprol Xl) 25 mg PO BRK [facility] Last Admin: 07/16/18 08:35 Dose: Not Given Nitroglycerin (Nitrostat Sl Tab) 0.4 mg SL Q5MIN PRN PRN Reason: Pain, Mild (1-3) Last Admin: 07/15/18 18:00 Dose: 0.4 mg Ondansetron HCl (Zofran Inj) 4 mg IVP Q6H PRN PRN Reason: Nausea/Vomiting Pantoprazole Sodium (Protonix Inj) 40 mg IVP DAILY [facility] Last Admin: 07/16/18 09:51 Dose: 40 mg Physical Exam - Constitutional Appears: Non-toxic, No Acute Distress - Head Exam Head Exam: ATRAUMATIC, NORMAL INSPECTION, NORMOCEPHALIC - Eye Exam Eye Exam: EOMI, Normal appearance, PERRL - Respiratory Exam Respiratory Exam: Clear to Auscultation Bilateral, NORMAL BREATHING PATTERN. absent: Accessory Muscle Use, Chest Wall Tenderness, Rales, Rhonchi, Wheezes, Respiratory Distress, Stridor - Cardiovascular Exam Cardiovascular Exam: RRR, +S1, +S2. absent: Gallop, Rubs - GI/Abdominal Exam GI & Abdominal Exam: Normal Bowel Sounds, Soft. absent: Distended, Firm, Guarding, Tenderness - Extremities Exam Extremities exam: Positive for: full ROM, normal capillary refill, normal inspection, pedal pulses present. Negative for: tenderness Additional comments: Pts dressing at side of access for PCI was noted to be clean, dry and intact with no bleeding or oozing noted at site. - Back Exam Back exam: NORMAL INSPECTION. absent: CVA tenderness (L), CVA tenderness (R) - Neurological Exam Neurological exam: Alert, Oriented x3 - Psychiatric Exam Psychiatric exam: Normal Affect, Normal Mood - Skin Skin Exam: Dry, Intact (except wherre noted above), Normal Color, Warm Results - Vital Signs Recent Vital Signs: Last Vital Signs Temp 97.4 F L 07/16/18 12:36 Pulse 68 07/16/18 12:00 Resp 18 07/16/18 12:00 BP 123/71 07/16/18 12:00 Pulse Ox 98 07/16/18 11:07 - Labs Result Diagrams: 07/16/18 03:15 07/16/18 03:15 Labs: Laboratory Results - last 24 hr 07/15/18 07/15/18 07/15/18 14:10 14:10 14:29 WBC 12.2 H RBC 3.88 Hgb 11.7 L Hct 35.6 L MCV 91.8 MCH 30.2 MCHC 32.9 RDW 12.7 Plt Count 254 MPV 9.9 Neut % (Auto) 90.0 H Lymph % (Auto) 3.8 L Hubbard % (Auto) 6.0 Eos % (Auto) 0.1 L Baso % (Auto) 0.1 Lymph # (Auto) 0.5 L Hubbard # (Auto) 0.7 H Eos # (Auto) 0.0 Baso # (Auto) 0.01 Absolute Neuts (auto) 11.03 H Neutrophils % (Manual) 91 H Lymphocytes % (Manual) 5 L Monocytes % (Manual) 4 Platelet Evaluation Normal Hypochromasia Slight Anisocytosis (manual) Slight PT INR APTT pO2 40 VBG pH 7.40 VBG pCO2 45.0 VBG HCO3 27.9 VBG Total CO2 29.3 H VBG O2 Sat (Calc) 79.7 H VBG Base Excess 2.5 H VBG Potassium 4.9 Sodium 137.0 Chloride 106.0 Glucose 305 H Lactate 1.6 FiO2 21.0 Potassium Carbon Dioxide Anion Gap BUN Creatinine Est GFR ( Amer) Est GFR (Non-Af Amer) Random Glucose Calcium Total Bilirubin AST ALT Alkaline Phosphatase Ammonia < 9 L Troponin I Total Protein Albumin Globulin Albumin/Globulin Ratio Free T4 TSH 3rd Generation Venous Blood Potassium 4.9 Urine Color Urine Appearance Urine pH Ur Specific Eckley Urine Protein Urine Glucose (UA) Urine Ketones Urine Blood Urine Nitrate Urine Bilirubin Urine Urobilinogen Ur Leukocyte Esterase Urine RBC Urine WBC Ur Epithelial Cells 07/15/18 07/15/18 07/15/18 14:29 14:29 16:35 WBC RBC Hgb Hct MCV MCH MCHC RDW Plt Count MPV Neut % (Auto) Lymph % (Auto) Hubbard % (Auto) Eos % (Auto) Baso % (Auto) Lymph # (Auto) Hubbard # (Auto) Eos # (Auto) Baso # (Auto) Absolute Neuts (auto) Neutrophils % (Manual) Lymphocytes % (Manual) Monocytes % (Manual) Platelet Evaluation Hypochromasia Anisocytosis (manual) PT 13.1 H INR 1.18 APTT 29.6 pO2 VBG pH VBG pCO2 VBG HCO3 VBG Total CO2 VBG O2 Sat (Calc) VBG Base Excess VBG Potassium Sodium 137 Chloride 104 Glucose Lactate FiO2 Potassium 5.0 Carbon Dioxide 26 Anion Gap 12 BUN 24 H Creatinine 0.9 Est GFR ( Amer) > 60 Est GFR (Non-Af Amer) > 60 Random Glucose 284 H Calcium 9.3 Total Bilirubin 0.6 AST 23 ALT 16 Alkaline Phosphatase 85 Ammonia Troponin I < 0.01 Total Protein 7.1 Albumin 3.9 Globulin 3.2 Albumin/Globulin Ratio 1.2 Free T4 TSH 3rd Generation Venous Blood Potassium Urine Color Yellow Urine Appearance Clear Urine pH 8.0 Ur Specific Eckley 1.020 Urine Protein 30 H Urine Glucose (UA) 500 H Urine Ketones 15 H Urine Blood Negative Urine Nitrate Negative Urine Bilirubin Negative Urine Urobilinogen 0.2 Ur Leukocyte Esterase Negative Urine RBC 0 - 2 Urine WBC 0 - 2 Ur Epithelial Cells 0 - 2 07/15/18 07/16/18 07/16/18 19:55 03:15 03:15 WBC 15.2 H D RBC 3.52 Hgb 10.5 L Hct 32.0 L MCV 90.9 MCH 29.8 MCHC 32.8 RDW 13.1 Plt Count 224 MPV 9.7 Neut % (Auto) 80.8 H Lymph % (Auto) 11.9 L Hubbard % (Auto) 7.2 H Eos % (Auto) 0.0 L Baso % (Auto) 0.1 Lymph # (Auto) 1.8 Hubbard # (Auto) 1.1 H Eos # (Auto) 0.0 Baso # (Auto) 0.02 Absolute Neuts (auto) 12.31 H Neutrophils % (Manual) Lymphocytes % (Manual) Monocytes % (Manual) Platelet Evaluation Hypochromasia Anisocytosis (manual) PT INR APTT pO2 VBG pH VBG pCO2 VBG HCO3 VBG Total CO2 VBG O2 Sat (Calc) VBG Base Excess VBG Potassium Sodium 138 Chloride 109 H Glucose Lactate FiO2 Potassium 4.2 Carbon Dioxide 25 Anion Gap 8 L BUN 25 H Creatinine 0.9 Est GFR ( Amer) > 60 Est GFR (Non-Af Amer) > 60 Random Glucose 197 H Calcium 8.3 L Total Bilirubin 0.4 AST 113 H D ALT 24 Alkaline Phosphatase 68 Ammonia Troponin I 3.68 H* D Total Protein 6.1 Albumin 3.2 Globulin 3.0 Albumin/Globulin Ratio 1.1 Free T4 TSH 3rd Generation Venous Blood Potassium Urine Color Urine Appearance Urine pH Ur Specific Eckley Urine Protein Urine Glucose (UA) Urine Ketones Urine Blood Urine Nitrate Urine Bilirubin Urine Urobilinogen Ur Leukocyte Esterase Urine RBC Urine WBC Ur Epithelial Cells 07/16/18 07/16/18 07/16/18 03:15 03:15 09:28 WBC RBC Hgb Hct MCV MCH MCHC RDW Plt Count MPV Neut % (Auto) Lymph % (Auto) Hubbard % (Auto) Eos % (Auto) Baso % (Auto) Lymph # (Auto) Hubbard # (Auto) Eos # (Auto) Baso # (Auto) Absolute Neuts (auto) Neutrophils % (Manual) Lymphocytes % (Manual) Monocytes % (Manual) Platelet Evaluation Hypochromasia Anisocytosis (manual) PT INR APTT 89.2 H pO2 VBG pH VBG pCO2 VBG HCO3 VBG Total CO2 VBG O2 Sat (Calc) VBG Base Excess VBG Potassium Sodium Chloride Glucose Lactate FiO2 Potassium Carbon Dioxide Anion Gap BUN Creatinine Est GFR ( Amer) Est GFR (Non-Af Amer) Random Glucose Calcium Total Bilirubin AST ALT Alkaline Phosphatase Ammonia Troponin I 32.00 H* D Total Protein Albumin Globulin Albumin/Globulin Ratio Free T4 1.11 TSH 3rd Generation 0.61 Venous Blood Potassium Urine Color Urine Appearance Urine pH Ur Specific Eckley Urine Protein Urine Glucose (UA) Urine Ketones Urine Blood Urine Nitrate Urine Bilirubin Urine Urobilinogen Ur Leukocyte Esterase Urine RBC Urine WBC Ur Epithelial Cells 07/16/18 10:35 WBC RBC Hgb Hct MCV MCH MCHC RDW Plt Count MPV Neut % (Auto) Lymph % (Auto) Hubbard % (Auto) Eos % (Auto) Baso % (Auto) Lymph # (Auto) Hubbard # (Auto) Eos # (Auto) Baso # (Auto) Absolute Neuts (auto) Neutrophils % (Manual) Lymphocytes % (Manual) Monocytes % (Manual) Platelet Evaluation Hypochromasia Anisocytosis (manual) PT INR APTT 53.0 H pO2 VBG pH VBG pCO2 VBG HCO3 VBG Total CO2 VBG O2 Sat (Calc) VBG Base Excess VBG Potassium Sodium Chloride Glucose Lactate FiO2 Potassium Carbon Dioxide Anion Gap BUN Creatinine Est GFR ( Amer) Est GFR (Non-Af Amer) Random Glucose Calcium Total Bilirubin AST ALT Alkaline Phosphatase Ammonia Troponin I Total Protein Albumin Globulin Albumin/Globulin Ratio Free T4 TSH 3rd Generation Venous Blood Potassium Urine Color Urine Appearance Urine pH Ur Specific Eckley Urine Protein Urine Glucose (UA) Urine Ketones Urine Blood Urine Nitrate Urine Bilirubin Urine Urobilinogen Ur Leukocyte Esterase Urine RBC Urine WBC Ur Epithelial Cells Assessment & Plan - Assessment and Plan (Free Text) Assessment: Pt is a 68yo F with pmhx of IDDM, hypothyroidism and HLD who presented to the ED for R sided flank pain and c/o chest palpitations. Code heart was called and in bed laborer, pt noted ot have triple vessel disease. Pt will be transferred to [facility] for further intervention. Plan: Neuro: - AOx3 Cardio - EKG showed T wave inversions, trops elevated, pt sent to bed laborer where triple vessel dz was noted - Heparin drip currently running - Cont ASA - Loading dose plavix given before cath - Nitroglycerin PRN - Zofran PRN - Cont Toprol xl - Cont statin - Transfer for CABG at [facility] Pulm: - Maintain O2 saturation >92% - CXR shows: No acute disease - read by me Endo: - ISS - Maintain euglycemia - Cont home thyroid medication GI: - Protonix PPx: DVT: Heparin drip. Case seen and discussed with Dr. Abelardo Cancino, PGY-1 <Rand Zhou - Last Filed: 07/17/18 09:45> Results - Vital Signs Recent Vital Signs: Last Vital Signs Temp 97.4 F L 07/16/18 12:36 Pulse 73 07/16/18 19:01 Resp 15 07/16/18 19:01 BP 115/67 07/16/18 19:01 Pulse Ox 78 L 07/16/18 19:01 - Labs Result Diagrams: 07/16/18 03:15 07/16/18 03:15 Labs: Laboratory Results - last 24 hr 07/16/18 07/16/18 07/16/18 03:50 09:28 10:35 APTT 53.0 H POC Glucose (mg/dL) Hemoglobin A1c 12.8 H Troponin I 32.00 H* D 07/16/18 15:55 APTT POC Glucose (mg/dL) 102 Hemoglobin A1c Troponin I Addendum Addendum: 07/16/18 19:30 MICU attending addendum patient seen and examined with housestaff on 07/16 agree with note above with the following add/exception 68 F pmhx of IDDM, hypothyroidism and HLD admitted with chest pain s/p card cath found to have triple vessel disease and will need CABG eval. patient scheduled for transfer to [facility] patient stable hemodynamically no chest pain no sob post cath mmt as per card on Heparin drip ASA plavix toprol statin Rest of care as above in housestaff note Rand Zhou MD MICU Attending
--- NOTE | 2018-07-16 14:19 | PN ---
DATE: 07/16/2018 The cardiac cath findings was discussed with Dr. Kenny, the findings are critical proximal LAD extending to its ostium with significant disease in its mid segment and significant mid-circumflex and distal RCA disease with apical and anterior apical hypokinesis, given the affect that the patient is diabetic, coronary artery bypass surgery was the better option, which was discussed by Dr. Kenny with the family with the option of urgently transferring the patient to [facility], the patient agreed for the decision and Dr. Kenny will contact the cardiothoracic surgical team for an early transfer today to [facility] and in the meantime, the patient will be kept on aspirin and therapeutic intravenous heparin Later on I was informed by Dr. Best that [facility] transfer was accepted , the family agreed and Discussed with Dr. Canales Reji Hicks MD [id number]
--- NOTE | 2018-07-16 15:57 | RAD ---
Date of service: 07/15/2018 HISTORY: Chest pain COMPARISON: No prior study available for comparison FINDINGS: LUNGS: Poor inspiration with low lung volumes, crowded bronchovascular markings and mild bibasilar atelectasis. PLEURA: No significant pleural effusion identified, no pneumothorax apparent. CARDIOVASCULAR: No aortic atherosclerotic calcification present. Normal cardiac size. No pulmonary vascular congestion. OSSEOUS STRUCTURES: No significant abnormalities. VISUALIZED UPPER ABDOMEN: Normal. OTHER FINDINGS: None. IMPRESSION: Poor inspiration with low lung volumes, crowded bronchovascular markings and mild bibasilar atelectasis.
--- NOTE | 2018-07-16 16:16 | RAD ---
Date of service: 07/16/2018 HISTORY: code heart COMPARISON: Comparison chest 07/15/2018 FINDINGS: LUNGS: No active pulmonary disease. PLEURA: No significant pleural effusion identified, no pneumothorax apparent. CARDIOVASCULAR: No aortic atherosclerotic calcification present. Normal cardiac size. No pulmonary vascular congestion. OSSEOUS STRUCTURES: No significant abnormalities. VISUALIZED UPPER ABDOMEN: Normal. OTHER FINDINGS: None. IMPRESSION: No active disease.
--- NOTE | 2018-07-16 16:17 | CARD ---
APPROVED REPORT Date of service: 07/16/2018 EKG Measurement Heart [id number] <Conclusion> Normal sinus rhythm Normal ECG
--- NOTE | 2018-07-16 20:23 | PN ---
DATE: 07/16/2018 SUBJECTIVE: The patient is a 68-year-old. She came to emergency room yesterday. Now complaining of back pain radiating towards the leg. Her CT scan showed early appendicitis. Her EKG shows normal sinus rhythm, low voltage QRS. So, the patient was admitted on Telemetry. Serial troponin was followed. She bumped her troponin, so she was started on heparin. This morning, her troponin level went from 3.68 to 32. Code Heart was called, and the patient was taken to organic lab worker. She was found to have triple-vessel disease. So, she is being transferred to [facility] for open heart surgery. The patient was seen and examined. Doing okay. PHYSICAL EXAMINATION: VITAL SIGNS: She is afebrile. Pulse 68, respirations 18, blood pressure 123/71. LUNGS: Bilateral fair airflow. No rhonchi or crackle. HEART: S1, S2 audible. ABDOMEN: Soft. Slight left lower quadrant discomfort. Some palpable discomfort in the right lower quadrant area. NEUROLOGICAL: She is awake, alert, oriented. Communicative. LABORATORY DATA: Her WBC is 15.2, hemoglobin 10.5, hematocrit 32, platelets 224. PTT 53. Chemistry: Sodium 138, potassium 4.2, chloride 109, CO2 of 25, BUN 25, creatinine 0.9, blood sugar of 197. Hemoglobin A1c is 12.8. ASSESSMENT: 1. Non-ST elevation myocardial infarction. 2. Hypertension. 3. Non-insulin dependent diabetes. 4. Poorly controlled diabetes. 5. Early appendicitis. 6. Hyperlipidemia. PLAN: The patient is currently on IV fluids. She is on aspirin 81 mg daily. She is on metronidazole. She is on IV heparin, and she is on Plavix, Protonix, and Rocephin and arrangement is being made to transfer to [facility] today for urgent open heart surgery. Luis Angel Canales MD
[2018-07-16 20:48] VITALS: BP 115/67; PULSE 73; RESP 15; O2SAT 78
--- NOTE | 2018-07-17 08:46 | CON ---
DATE: 07/16/2018 REASON FOR CONSULTATION: Right flank pain as well as elevated troponin. HISTORY OF PRESENT ILLNESS: The patient is a 68-year-old female, who was evaluated by a Cardiology team in a clinic in [place] and was told she has no problem according to the patient's daughter. The patient underwent a stress test a year ago and was not told about any problem with the result of the test. The patient presented because of the complaint of right flank pain radiating to the right thigh. Later on upon my evaluation in the presence of the daughter, who translates to me, the patient admitted to have had chest pain one week earlier and also another episode of chest pain after admission last night to the hospital. The patient denies any associated diaphoresis or shortness of breath. The patient denies any nausea or vomiting and denies any diarrhea. The patient is unaware of any fever or chills. SOCIAL HISTORY: The patient is a former smoker. She is , lives with her . MEDICATIONS: Dilaudid 1 mg intravenously q. 4 hours p.r.n., Flagyl 500 mg intravenous every 8 hours, intravenous heparin infusion and a therapeutic regimen for acute coronary syndrome, Protonix 40 mg intravenously daily, Rocephin 1 g intravenously daily, Toprol-XL 25 mg daily, which is being withheld today. PAST MEDICAL HISTORY: History of hypertension and history of palpitation. PHYSICAL EXAMINATION: GENERAL: The patient is an elderly female, who does not appear to be in acute distress. VITAL SIGNS: Most recent blood pressure 86/48 with a heart rate of 58, temperature 98.9, respirations 18. HEENT: Normocephalic. CHEST: Clear. HEART: S1, S2 regular. ABDOMEN: McBurney's point tenderness and rebound tenderness. EXTREMITIES: No edema. No calf tenderness. LABORATORY DATA: Hemoglobin and hematocrit 10.5 and 32.0, white count 15.2, platelet count 224,000. SMA-7, sodium 138, potassium 4.2, chloride 109, CO2 25, glucose 197, BUN 25, creatinine 0.9. Troponin, first troponin is negative, second one is 3.68. TSH level and free T4 are within normal limits. The most recent PTT is 89.2. EKGs, initial EKG revealed sinus rhythm with ST-T wave abnormality, consider anterolateral ischemia, and the subsequent EKG done after this positive second troponin, revealed the resolution of those anterolateral ischemic EKG changes. Abdomen and pelvis CT scan, the appendix is slightly dilated measuring up to 10.6 mm with minimal wall thickening; however, it does appear to partially filled with air. No obvious inflammatory changes are identified. These findings may represent a normal variant; however, the possibility of an acute appendicitis must be considered. Number two, 4 mm nonobstructing calcification, upper pole left kidney. Urinary bladder thickening due to incomplete distention, have a correlation with urinalysis to exclude cystitis. Mild rectal wall thickening. Extensive uterine calcification with calcified uterine fibroid consistent with calcified fibroid. ASSESSMENT: 1. Consider non-ST elevation myocardial infarction. 2. Rule out pulmonary infarction. 3. Early acute appendicitis. 4. Mild hypotension. 5. Mild anemia. RECOMMENDATIONS: Continue current IV fluid half normal saline 100 mL an hour. Continue IV Flagyl and IV Rocephin. Continue intravenous heparin and therapeutic regimen for acute coronary syndrome. The patient did receive aspirin 325 mg yesterday and will receive 81 mg orally today. I will proceed with chest CT angio to rule out pulmonary embolism and if the patient is cleared from the surgical point, cardiac catheterization with the possibility of intervention will be considered. However, if there is any evidence of acute appendicitis or possibility of perforation, then immediate surgical intervention will be justified prior to coronary intervention as it would be a more life-threatening issue. Reji Hicks MD
--- NOTE | 2018-07-20 07:48 | CARD ---
APPROVED REPORT Date of service: 07/16/2018 Procedure(s) performed: Left Heart Catheterization Complete Heart Catheterization Left Ventriculogram HISTORY The patient is a 68 year-old female with a history of : previous CHF, diabetes mellitus with oral treatment , chronic lung disease, tobacco history() : The patient is a former smoker , hypertension . INDICATION The indication(s) include : unstable angina (>6 hrs to = 12 hrs), non-STEMI (>6 hrs to = 12 hrs). CASE TECHNIQUE The patient was brought emergently to the Cardiac Catheterization Laboratory in a fasting state and was prepped and draped in a sterile manner. The right femoral groin was infiltrated with 2% Lidocaine subcutaneous anesthesia. A 6 Fr x 11 cm Key sheath was inserted using coronary diagnostic catheters. The left coronary system was accessed and visualized with a Diagnostic catheter. The right coronary system was accessed and visualized with a Diagnostic catheter. The left ventricle was accessed and visualized with a Diagnostic catheter. Left ventricular/Aortic Valve gradient assessed on pullback. Left ventriculogram was performed in ARGUETA projection. The patient tolerated the procedure well and there were no complications associated with the procedure. Sheat was sutured in place. Vessel Analysis The patient's coronary anatomy is co-dominant. The left main coronary artery is a medium size vessel with intimal irregularities. The left main trifurcates to the left anterior descending, circumflex, and ramus. The left anterior descending artery is a small size vessel . There is a 95% stenosis in the ostial segment. 80% tho the mid/distal. The circumflex artery is a large size vessel . There is a 70% stenosis in the mid segment. The first obtuse marginal branch is a large size vessel . There is a 80% stenosis in the proximal segment. The right coronary artery is a small size vessel . There is a 90% stenosis in the distal segment. Left Ventricle The left ventricle is normal in size with decreased contractility. The left ventricular ejection fraction is estimated to be 40%. Conclusion Three vessel CAD. Moderate depressed left ventricular function. Recommendations assumption [facility] consult for CABG.
== END 2018-07-16 19:00 | disposition short-term general hospital (02) | DRG 282 ==
LOC: ED 13:35 → ERH 18:51 → 2RNO 20:09 → ICU 07-16 12:13
PROVIDERS: ADMIT Internal Medicine; ATTEND Internal Medicine
PROC: 4A023N7 Measurement of Cardiac Sampling and Pressure, Left Heart, Percutaneous Approach (ICD-10-PCS; principal; 2018-07-16)
PROC: B2151ZZ Fluoroscopy of Left Heart using Low Osmolar Contrast (ICD-10-PCS; 2018-07-16)
PROC: B2111ZZ Fluoroscopy of Multiple Coronary Arteries using Low Osmolar Contrast (ICD-10-PCS; 2018-07-16)
DX: I21.4 Non-ST elevation (NSTEMI) myocardial infarction (principal); I25.110 Atherosclerotic heart disease of native coronary artery with unstable angina pectoris; E11.65 Type 2 diabetes mellitus with hyperglycemia; I10 Essential (primary) hypertension; K36 Other appendicitis; D25.9 Leiomyoma of uterus, unspecified; E03.9 Hypothyroidism, unspecified; M81.0 Age-related osteoporosis without current pathological fracture; E78.5 Hyperlipidemia, unspecified; D64.9 Anemia, unspecified; Z79.4 Long term (current) use of insulin; Z87.891 Personal history of nicotine dependence